=== PATIENT | male | born 1975 ===

== ENCOUNTER → 2018-09-21 | Outpatient (REF) | payer SELFPAY ==
[2018-09-21 21:41] LABS: Group B Strep DNA By PCR Negative (Negative); Internal Control PASS; Probe Check PASS; Specimen Processing Control PASS
[2018-09-22 12:00] LABS: Group B Strep DNA By PCR Negative (Negative); Internal Control PASS; Probe Check PASS; Specimen Processing Control PASS
[2018-09-23 09:41] LABS: Group B Strep DNA By PCR POSITIVE (Negative); Internal Control PASS; Probe Check PASS; Specimen Processing Control PASS
[2018-09-26 03:15] LABS: Group B Strep DNA By PCR POSITIVE (Negative); Probe Check PASS
[2018-10-02 09:35] LABS: Group B Strep DNA By PCR POSITIVE (Negative)
[2018-10-02 09:36] LABS: Internal Control PASS; Probe Check PASS; Specimen Processing Control PASS
== END | disposition home or self-care (01) ==
LOC: LABSURVEY 10:47
PROVIDERS: Visit Provider Pathology Anatomic Pathology & Clinical Pathology
DX: Z00.00 Encounter for general adult medical examination without abnormal findings (principal)
CPT/HCPCS: 87081